=== PATIENT | female | born 1980 | race Caucasian/White ===

== ENCOUNTER 2019-06-09 07:04 | Emergency (ER) | payer OTHER ==
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
--- OUTSIDE RECORDS SUMMARY | 2019-06-09 07:12 | XMS REPORT | Summary of Care ---
:1980 Author Organization [facility] Address [address] [place] [address] Care Team Providers Name Role Phone Alicia David Primary Care Provider Reason for Visit Reason Comments Anxiety getting worse, would like to discuss daily medication Encounter Details Date Type Department Care Team Description 05/21/2019 Office Visit [facility] Antonia Small, Anxiety state ( Primary Practice CURATOR HERBARIUM Dx) [address] [facility] [address] [place] [address] [place] [address] [phone] Allergies No Known Allergiesdocumented as of this encounter (statuses as of 05/21/2019) Medications Medication Sig Dispensed Refills Start Date End Date Status ALPRAZolam (XANAX) Take 1 Tab 60 Tab 0 03/19/2019 Active 0.25 MG Oral Tab by mouth THREE TIMES DAILY NEEDED (anxiety). Max Daily Amount: 0.75 mg. escitalopram Take 1 Tab 30 Tab 1 05/21/2019 Active (LEXAPRO) 10 MG by mouth Oral DAILY. TabIndications: Anxiety state amLodipine Take 1 Tab 90 Tab 0 10/23/2018 Discontinued (NORVASC) 2.5 MG by mouth 0 (Patient stopped Oral Tab DAILY. the medication) neomycin-polymyxin Place 2 1 Bottle 0 12/18/2018 Discontinued -hydrocortisone Drops into 0 (Therapy (CORTISPORIN) left ear Completed) [id number] Otic THREE TIMES Suspension DAILY. documented as of this encounter (statuses as of 05/21/2019) Active Problems Problem Noted Date Anxiety state 12/31/2015 documented as of this encounter (statuses as of 05/21/2019) Immunizations Name Administration Dates Next Due Influenza (IM) Preservative Free 12/18/2018, 01/30/2018, 01/24/2017 documented as of this encounter Social History Tobacco Use Types Packs/Day Years Used Date Never Smoker 0 Smokeless Tobacco: Never Used Alcohol Use Drinks/Week oz/Week Comments Yes 2 Standard drinks or equivalent 2.0 Sex Assigned at Date Recorded Not on file Job Start Date Occupation Industry Not on file Not on file Not on file Travel History Travel Start Travel End No recent travel history available. documented as of this encounter Last Filed Vital Signs Vital Sign Reading Time Taken Comments Blood Pressure 130/68 05/21/2019 8:59 AM EST Pulse 68 05/21/2019 8:59 AM EST Temperature - - Respiratory Rate - - Oxygen Saturation 99% 05/21/2019 8:59 AM EST Inhaled Oxygen Concentration - - Weight 68.5 kg (151 lb) 05/21/2019 8:59 AM EST Height 167.6 cm (5' 6") 05/21/2019 8:59 AM EST Body Mass Index 24.37 05/21/2019 8:59 AM EST documented in this encounter Patient Instructions Patient InstructionsAntonia Small FNP - 05/21/2019 9:00 AM ESTStart Lexapro 10 mg a day Consider seeing Psych Continue counseling Follow up in 4-6 weeks - call if any issue before that documented in this encounter Progress Notes Antonia Small FNP - 05/21/2019 9:00 AM EST PATIENT: Nadria Stewart : 1980 DATE OF SERVICE: 05/21/2019 CHIEF COMPLAINT: Chief Complaint Patient presents with Anxiety getting worse, would like to discuss daily medication Subjective HISTORY OF PRESENT ILLNESS: Nadira Stewart is a 38-y.o. female. HPI Increased anxiety - recently in [place] - daily panic attacks - didn't have xanax with her. Feels daily medication may help. Past Medical History: Diagnosis Date Anxiety stopped citalopram, did not help Dysplasia of cervix 2003 s/p leep Headache disorder MRI negative for mass 03/01/2014, some nonsp white matter changes. Family History Problem Relation Age of Onset Cancer Unknown variety Hypertension Mother Hypertension Father Hypertension Brother Cancer Brother leukemia Diabetes Maternal Uncle Diabetes Paternal Aunt Breast Cancer Paternal Aunt 70s Diabetes Paternal Grandmother Cancer Other leukemia in 3 cousins Breast Cancer Other Current Outpatient Medications Medication Sig ALPRAZolam (XANAX) 0.25 MG Oral Tab Take 1 Tab by mouth THREE TIMES DAILY NEEDED (anxiety). Max Daily Amount: 0.75 mg. escitalopram (LEXAPRO) 10 MG Oral Tab Take 1 Tab by mouth DAILY. No current facility-administered medications for this visit. No Known Allergies Social History Socioeconomic History Marital status: Spouse name: Not on file Number of children: Not on file Years of education: Not on file Highest education level: Not on file Occupational History Not on file Social Needs Financial resource strain: Not on file Food insecurity Worry: Not on file Inability: Not on file Transportation needs Medical: Not on file Non-medical: Not on file Tobacco Use Smoking status: Never Smoker Smokeless tobacco: Never Used Substance and Sexual Activity Alcohol use: Yes Alcohol/week: 2.0 standard drinks Types: 2 Standard drinks or equivalent per week Drug use: No Sexual activity: Yes Partners: Male control/protection: I.U.D. Comment: MIrena Lifestyle Physical activity Days per week: Not on file Minutes per session: Not on file Stress: Not on file Relationships Social connections Talks on phone: Not on file Gets together: Not on file Attends anglican service: Not on file Active member of club or organization: Not on file Attends meetings of clubs or organizations: Not on file Relationship status: Not on file Intimate partner violence Fear of current or ex partner: Not on file Emotionally abused: Not on file Physically abused: Not on file Forced sexual activity: Not on file Other Topics Concern Back Care Not Asked Bike Helmet Not Asked Blood Transfusions Not Asked Caffeine Concern Not Asked Exercise Not Asked Hobby Hazards Not Asked International Travel Not Asked Service Not Asked Occupational Exposure Not Asked Seat Belt Not Asked Self-Exams Not Asked Sleep Concern Not Asked Special Diet Not Asked Stress Concern Not Asked Weight Concern Not Asked 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 Objective PHYSICAL EXAM: VITALS: BP 130/68 | Pulse 68 | Ht 5' 6" (1.676 m) | Wt 151 lb (68.5 kg) | SpO2 99% | BMI 24.37kg/m Body mass index is 24.37 kg/m. Physical Exam Vitals signs and nursing note reviewed. Constitutional: Appearance: Normal appearance. Skin: General: Skin is warm and dry. Neurological: Mental Status: She is alert and oriented to person, place, and time. Psychiatric: Mood and Affect: Mood is anxious. Speech: Speech normal. Behavior: Behavior is not agitated. Behavior is cooperative. Thought Content: Thought content is not delusional. Thought content does not include homicidal orsuicidal plan. Comments: Has been using xanax as needed. Recent increase of anxiety while traveling - better nowthat home. Wondering about daily medication. 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 Sees counselor weekly - counselor has suggested seeing psych. Not using xanax - has fear of becoming dependent. Medications discussed - states other family membertaking Lexapro - she would feel comfortable with that medication. Use and side effects discussed - will start at 10 mg a day and monitor ASSESSMENT / IMPRESSION: ICD-9-CM ICD-10-CM 1. Anxiety state 300.00 F41.1 escitalopram (LEXAPRO) 10 MG Oral Tab Plan Start Lexapro 10 mg a day Consider seeing Psych Continue counseling Follow up in 4-6 weeks - call if any issue before that Author: TORRES Blair 05/21/2019 09:19 documented in this encounter Plan of Treatment Date Type Specialty Care Team Description 06/08/2019 Office Visit Family Practice David Vargas MD [address] [place] [address] [phone] Health Maintenance Due Date Last Done Comments DTaP/Tdap/Td Vaccines ( - 1989 Tdap) MAMMOGRAM (SCREENING) 11/02/2019 11/01/2018 LIPID DISORDER [...] Type Problems Progress Blood Pressure Blood Pressure 130/68 No Alicia, < 140/90 (05/21/2019 MD David 8:59 AM EST) Note: This is an individualized treatment (blood pressure) goal for Nadira Stewart: Displayed above (on the left) is your goal for blood pressure control. Your most recent blood pressure is also shown above, on the right. You should try to achieve blood pressures that are lower than your goal listed above (on the left). Take all prescribed medications as directed Self-management David Fuchs MD Note: This is an individualized self-management [...] Diagnoses Diagnosis Anxiety state Anxiety state, unspecified documented in this encounter Insurance Payer Benefit Plan / Subscriber ID Effective Dates Phone Address Type Group [employer] COMMERCIAL AETNA [facility] xxxxxxxxxx 2012-Present [employer] (Home) [address] [phone] [place], [place] (Work) [id number] documented as of this encounter
--- NOTE | 2019-06-09 08:01 | UC ---
Syncope/New Syncope HPI - HPI Summary HPI Summary: 38-year-old woman comes in with a chief complaint of syncope 2 this morning. Patient woke up and about 6 AM and when she first stood up she felt lightheaded. That improved. She was having pelvic cramping pain. She went to the bathroom and was sitting on the toilet and she was having a hard time urinating and then chief on the bathroom floor. She tried to urinate again was unable to urinate. She then passed out again in her living room as she was walking from the bathroom attempted to get back to her bedroom. Last period was approximately a week and a half ago. Patient reports she never gets menstrual cramps. She has a 10 cm uterine fibroid. She is never had a problem urinating in the past. No burning with urination now no UTI symptoms. Reports bowels have been overall normal no blood in them. Patient recently started on Effexor 75 mg once a day. Yesterday she increased the dose to 150 mg. She also took Claritin 2 days ago for some environmental allergy symptoms. She was in [place] early in May. No upper respiratory tract infection or GI or urinary symptoms. Prior to and after the syncopal episodes patient denies feeling any chest pain shortness of breath or palpitations. No prior histories of syncope or difficulty with urination. - History Of Current Complaint Chief Complaint: UCDizziness Stated Complaint: FAINTED Time Seen by Provider: 06/09/19 07:15 Hx Last Menstrual Period: murena iud - no menses Pain Intensity: 0 - Allergies/Home Medications Allergies/Adverse Reactions: Allergies Allergy/AdvReac Type Severity Reaction Status Date / Time No Known Allergies Allergy Verified 06/09/19 07:25 Home Medications: Home Medications ALPRAZolam ER (NF) 0.5 mg PO DAILY WITH MEAL 06/09/19 [History Confirmed ] Loratadine [Claritin] 10 mg PO DAILY 06/09/19 [History Confirmed 06/09/19] Prazosin 1 mg CAP [Minipress 1 mg CAP] 1 mg PO DAILY 06/09/19 [History Confirmed 06/09/19] Venlafaxine ER (NF) [Effexor ER (NF)] 150 mg PO DAILY 06/09/19 [History Confirmed 06/09/19] PMH/Surg Hx/FS Hx/Imm Hx Previously Healthy: Yes - PTSD Psychological History: Anxiety - Surgical History Surgical History: Yes Surgery Procedure, Year, and Place: laser to cervix for pre cancerous cells - Family History Known Family History: Positive: Non-Contributory - Social History Alcohol Use: Occasionally Substance Use Type: None Smoking Status (MU): Former Smoker Review of Systems All Other Systems Reviewed And Are Negative: Yes Constitutional: Positive: Other - SEE HPI Skin: Positive: Negative Eyes: Positive: Negative ENT: Positive: Negative Respiratory: Positive: Negative Cardiovascular: Positive: Negative Gastrointestinal: Positive: Other - SEE HPI Genitourinary: Positive: Other - SEE HPI Motor: Positive: Negative Neurovascular: Positive: Negative Musculoskeletal: Positive: Negative Neurological/Mental Status: Positive: Negative Psychological: Positive: Anxious Is Patient Immunocompromised?: No Physical Exam Triage Information Reviewed: Yes Appearance: Well-Appearing, No Pain Distress, Well-Nourished Vital Signs: Initial Vital Signs Temp 98.3 F 06/09/19 07:18 Pulse 81 06/09/19 07:18 Resp 18 06/09/19 07:18 BP 145/89 06/09/19 07:18 Pulse Ox 100 06/09/19 07:18 Vital Signs Reviewed: Yes Eye Exam: Normal Eyes: Positive: Conjunctiva Clear, Other: - PERRLA EOMI ENT: Positive: Pharynx normal Neck: Positive: Supple Respiratory: Positive: Lungs clear, Normal breath sounds, No respiratory distress Cardiovascular: Positive: RRR Abdomen Description: Positive: Other: - Mild tenderness to palpation right lower and suprapubic area. No rebound.. Negative: CVA Tenderness (R), CVA Tenderness (L) Bowel Sounds: Positive: Present Musculoskeletal: Positive: Strength Intact, ROM Intact Neurological: Positive: Alert, Muscle Tone Normal Psychological: Positive: Age Appropriate Behavior Skin Exam: Normal Diagnostics - EKG Cardiac Rate: NL - at 0720 Cardiac Rhythm: Sinus: Normal - 73bpm Ectopy: None ST Segment: Normal Syncope Course/Dx - Course Course Of Treatment: I discussed the EKG with the patient. I do not see any abnormalities on EKG. Vital signs to include orthostatic vital signs were also normal. Because of the syncope 2 I recommended further evaluation emergency Department. Patient prefers to go by POV. - Differential Dx/Diagnosis Provider Diagnosis: Syncope Discharge ED - Sign-Out/Discharge Documenting (check all that apply): Patient Departure All imaging exams completed and their final reports reviewed: No Studies - Discharge Plan Condition: Stable Disposition: HOME-RECOMMEND TO ED Patient Education Materials: Syncope (ED) Referrals: David Vargas MD [Primary Care Provider] - Additional Instructions: GO DIRECTLY TO THE EMERGENCY DEPARTMENT FOR FURTHER EVALUATION. - Billing Disposition and Condition Condition: STABLE Disposition: Home-Recommend to ED
[2019-06-09 08:04] VITALS: BP 143/89
== END 2019-06-09 08:09 | disposition home health service (06) ==
LOC: UCEAST 07:04
DX: R55 Syncope and collapse (principal); F41.9 Anxiety disorder, unspecified; Z79.899 Other long term (current) drug therapy; Z87.891 Personal history of nicotine dependence
CPT/HCPCS: 99212; G0463

== ENCOUNTER → 2019-06-09 08:26 | Emergency (ER) | payer OTHER ==
--- NOTE | 2019-06-09 08:48 | ED ---
Neurological HPI - HPI Summary HPI Summary: This patient is a 38 year old F presenting to [facility] with a chief complaint of multiple episodes of syncope since prior to arrival. Pt woke up this morning and went to the bathroom to urinate. Pt felt pain in suprapubic region while urinating and felt dizzy intermittently. The pt lost conscious and she woke up very confused, lying on the floor of the bathroom. Then pt tried to urinate again, and while walking back to bedroom, lost consciousness before waking up on the living room floor. LOC was not witnessed, but pt is currently walking fine. Pt has not had similar symptoms previously. Pt was 25 mg of Effexor and that was recently increased to 150 mg. Last night was the first night she took 150 mg. She has had no other changes in medication. Patient denies CP, racing heart rate, numbness and tingling. Pt has PMHx of anxiety, and PTSD. Pt has FHx of CA and heart murmur. Her last period was one week ago. Pt previously had laser to cervix for pre-cancerous cells. Medications reviewed. Allergies noted. - History of Current Complaint Chief Complaint: EDSyncope Stated Complaint: SYNCOPE PER PT Time Seen by Provider: 06/09/19 08:36 Hx Obtained From: Patient Hx Last Menstrual Period: one week ago Onset/Duration: Sudden Onset, Resolved Timing: Intermittent Episodes Lasting: Current Severity: None Pain Intensity: 0 Pain Scale Used: 0-10 Numeric Character: Dizzy, Confusion Number of Episodes: 2 Syncope Context: Unwitnessed, Loss of Consciousness: Yes Aggravating: Exertion Alleviating: Nothing Associated Signs and Symptoms: Positive: Confusion, Dizziness. Negative: Numbness, Chest Pain - Allergy/Home Medications Allergies/Adverse Reactions: Allergies Allergy/AdvReac Type Severity Reaction Status Date / Time No Known Allergies Allergy Verified 06/09/19 08:29 Home Medications: Home Medications Alprazolam XR (NF) [Xanax XR (NF)] 1 tab PO DAILY 06/09/19 [History Confirmed ] Loratadine [Claritin] 10 mg PO DAILY 06/09/19 [History Confirmed 06/09/19] Prazosin 1 mg CAP [Minipress 1 mg CAP] 1 mg PO BEDTIME 06/09/19 [History Confirmed 06/09/19] Temazepam [Restoril] 1 cap PO BEDTIME PRN 06/09/19 [History Confirmed 06/09/19] Venlafaxine ER (NF) [Effexor ER (NF)] 150 mg PO DAILY 06/09/19 [History Confirmed 06/09/19] PMH/Surg Hx/FS Hx/Imm Hx Endocrine/Hematology History: Denies: Hx Diabetes, Hx Thyroid Disease Cardiovascular History: Denies: Hx Hypertension, Hx Pacemaker/ICD Respiratory History: Denies: Hx Asthma, Hx Chronic Obstructive Pulmonary Disease (COPD) GI History: Denies: Hx Ulcer History: Denies: Hx Dialysis, Hx Renal Disease Sensory History: Denies: Hx Hearing Aid Psychiatric History: Denies: Hx Panic Disorder - Surgical History Surgery Procedure, Year, and Place: laser to cervix for pre cancerous cells Infectious Disease History: No Infectious Disease History: Denies: Hx Clostridium Difficile, Hx Hepatitis, Hx Human Immunodeficiency Virus (HIV), Hx Shingles, Hx Tuberculosis, Traveled Outside the [place] in Last 30 Days - Family History Known Family History: Positive: Other - MIy, Heart murmer - Social History Occupation: Employed Full-time Lives: With Family Alcohol Use: Occasionally Substance Use Type: Reports: None Smoking Status (MU): Former Smoker Review of Systems Negative: Chest Pain, Other - increased HR Positive: dysuria Neurological/Mental Status: Other - dizziness, confusion Positive: Syncope. Negative: Numbness All Other Systems Reviewed And Are Negative: Yes Physical Exam - Summary Physical Exam Summary: Constitutional: Well-developed, Well-nourished, Alert. (-) Distressed Skin: Warm, Dry HENT: Normocephalic; Atraumatic Eyes: Conjunctiva normal Neck: Musculoskeletal ROM normal neck. (-) JVD, (-) Stridor, (-) Tracheal deviation Cardio: Rhythm regular, rate normal, Heart sounds normal; Intact distal pulses; Radial pulses are 2+ and symmetric. (-) Murmur Pulmonary/Chest wall: Effort normal. (-) Respiratory distress, (-) Wheezes, (-) Rales Abd: Soft, (-) tenderness, (-) Distension, (-) Guarding, (-) Rebound Musculoskeletal: (-) Edema Lymph: (-) Cervical adenopathy Neuro: Alert, Oriented x3, able to ambulate to bathroom normally. Psych: Mood and affect Normal Triage Information Reviewed: Yes Vital Signs On Initial Exam: Initial Vitals Temp Pulse Resp BP Pulse Ox 98.3 F 82 19 170/111 100 06/09/19 08:27 06/09/19 08:27 06/09/19 08:27 06/09/19 08:27 06/09/19 08:27 Vital Signs Reviewed: Yes Procedures - Sedation Patient Received Moderate/Deep Sedation with Procedure: No Diagnostics - Vital Signs Vital Signs Temp Pulse Resp BP Pulse Ox 06/09/19 08:27 98.3 F 82 19 170/111 100 - Laboratory Result Diagrams: 06/09/19 08:43 06/09/19 08:43 Lab Statement: Any lab studies that have been ordered have been reviewed, and results considered in the medical decision making process. - EKG 0853 Cardiac Rate: NL EKG Rhythm: Sinus Rhythm Summary of EKG Findings: EKG at 0853 reveals normal sinus rhythm with rate of 63 BPM. No STEMI. This EKG was reviewed and interpreted by ED physician. Re-Evaluation - Re-Evaluation First Eval Re-Evaluation Time: 10:06 Comment: Discussed results and plan of care with pt Course/Dx - Course Course Of Treatment: Patient is here 2 episodes of syncope. Patient did have the syncopal episode after micturition. Patient did go up to 150 mg of effexor last night which could be contributing to her symptoms. Patient had no other symptoms during the event. Patient severance of the like this before and has no family history of arrhythmia. Patient had an EKG which showed no evidence of arrhythmia. Patient had motor performed which was grossly unremarkable. Patient ambulated without difficulty here. Patient was discharged with PCP follow-up for possible Holter monitor. Patient will go back to her 10 mg of Lexapro per her psychiatrist who she called all she was in the ED. - Diagnoses Provider Diagnoses: Syncope Discharge ED - Sign-Out/Discharge Documenting (check all that apply): Patient Departure - Discharge - Discharge Plan Condition: Stable Disposition: HOME Patient Education Materials: Syncope (ED) Referrals: David Vargas MD [Primary Care Provider] - 3 Days Additional Instructions: Follow up with primary care provider for possible holter monitor. Come back to ED if you have recurrent symptoms, chest pain, or palpitation; take the rest of the day easy. Go back to Lexapro and stop taking Effexor. - Billing Disposition and Condition Condition: STABLE Disposition: Home - Attestation Statements Document Initiated by Randiibe: Yes Documenting Scribe: Karmen Aleman Provider For Whom Nicole is Documenting (Include Credential): Ehsan Mace MD Scribe Attestation: Karmen Ramirez, scribed for Ehsan Mace MD on 06/09/19 at 1223. Scribe Documentation Reviewed: Yes Provider Attestation: The documentation as recorded by the Karmen marquez accurately reflects the service I personally performed and the decisions made by me, Ehsan Mace MD Status of Scribe Document: Viewed
[2019-06-09 08:53] LABS: ABS Basophils 0.1 10^3/ul (0-0.2); ABS Lymphocytes 0.9 10^3/ul (1.0-4.8); ABS Monocytes 0.5 10^3/ul (0-0.8); ABS Neutrophils 4.5 10^3/ul (1.5-7.7); Eosinophil % 0.8 %; Hematocrit 37 % (35-47); Hemoglobin 12.2 g/dL (12.0-16.0); Lymphocyte % 15.3 %; Mean Corpuscular HGB Conc 33 g/dL (31-36); Mean Corpuscular Hemoglobin 28 pg (27-31); Mean Corpuscular Volume 83 fL (80-97); Mean Platelet Volume 7.8 fL (7.4-10.4); Platelet Count 240 10^3/uL (150-450); Red Blood Count 4.46 10^6 /uL (3.70-4.87); Red Cell Distribution Width 16 % (10-15); White Blood Count 6.1 10^3/uL (3.5-10.8)
[2019-06-09 09:19] LABS: ALT 9 U/L (7-52); AST 17 U/L (13-39); Albumin 4.5 g/dL (3.2-5.2); Albumin/Globulin Ratio 1.7 (1-3); Alkaline Phosphatase 29 U/L (34-104); Anion Gap 7 mmol/L (2-11); BUN/Creatinine Ratio 10.4 (8-20); Blood Urea Nitrogen 8 mg/dL (6-24); CO2 Carbon Dioxide 26 mmol/L (22-32); Calcium 8.7 mg/dL (8.6-10.3); Chloride 103 mmol/L (101-111); EGFR African American 100.5 (>60); Globulin 2.7 g/dL (2-4); Glucose 100 mg/dL (70-100); Potassium 3.7 mmol/L (3.5-5.0); Sodium 136 mmol/L (135-145); Total Protein 7.2 g/dL (6.4-8.9)
[2019-06-09 09:24] LABS: HCG Pregnancy < 0.60 mIU/mL
[2019-06-09 10:18] VITALS: BP 165/104
== END | disposition home or self-care (01) ==
LOC: ED 08:26
DX: R55 Syncope and collapse (principal); R41.0 Disorientation, unspecified; R42 Dizziness and giddiness; Z79.899 Other long term (current) drug therapy; Z87.891 Personal history of nicotine dependence; F41.9 Anxiety disorder, unspecified
CPT/HCPCS: 36415; 80053; 83880; 84484; 84702; 85025; 93005; 99282